=== PATIENT | female | born 2000 | race Caucasian/White ===

== ENCOUNTER 2019-11-21 08:43 | Emergency (ER) | payer BC, SELFPAY ==
--- NOTE | ~2019-11-21 | CT_ITS ---
EXAMINATION: XR abdomen/kub 1V, CT abdomen pelvis wo con DATE: 11/21/2019 09:57 (accession [id number]), 11/21/2019 09:53 (accession [id number]) INDICATION: TECHNIQUE: Computed tomography (CT) of the abdomen and pelvis was performed without intravenous contr ast. The dose-length product was 178.33 mGy-cm. Automated exposure control and iterative reconstructi on technique were employed. KUB. COMPARISON: None. FINDINGS: Heart size normal. No significant pleural or pericardial effusion. There is mild right ureterectasis with periureteral edema proximally. No obstructing stone or mass id entified. Small amount of free fluid in the pelvis. There is a 1.8 cm right ovarian follicle. No calista l stones or masses. Gallbladder is present. Nonobstructive bowel gas pattern. No free air. Colonic di verticulosis without evidence for diverticulitis. No acute osseous abnormality. KUB is unremarkable. IMPRESSION: 1. Mild right ureterectasis with subtle periureteral edema proximally. No obstructing stone or mass s een. Consider recently passed stone in the ascending urinary tract infection. 2: Right ovarian follicle measuring 1.8 cm. Small amount of free fluid in the pelvis, likely physiolo gic. Reviewed, dictated and finalized at location B. IMPRESSION: 1. Mild right ureterectasis with subtle periureteral edema proximally. No obstr ucting stone or mass seen. Consider recently passed stone in the ascending urin gus tract infection. 2: Right ovarian follicle measuring 1.8 cm. Small amount of free fluid in the p tiffanie, likely physiologic.
[2019-11-21 08:52] VITALS: BP 131/82; PULSE 96; RESP 16; TEMP 37.2; O2SAT 97
[2019-11-21 09:13] LABS: Add Urine Microscopic? YES; Appearance Urine Cloudy (Clear); Bacteria Urine Trace /hpf; Bilirubin Urine Negative (Negative); Blood Urine 2+ (Negative); Color Urine Yellow (Yellow); Glucose Urine UA Negative (Negative); Ketones Urine Negative (Negative); Leukocyte Esterase Ur 2+ LEU/UL (Negative); Mucus Urine Heavy /lpf; Nitrate Urine Negative (Negative); Protein Urine 2+ mg/dL (Negative); RBC Urine >75 /hpf (0-2); Specific Grav Ur 1.017 (1.001-1.035); Squamous Epithelial Cell Urine Many /hpf (Few); Urobilinogen Urine Negative mg/dL (<2.0); WBC Urine >75 /hpf
--- NOTE | 2019-11-21 09:14 | ED.ABDPAIN ---
HPI - Abdominal Pain General Chief Complaint: Urogenital-Female Stated Complaint: UTI sx Time Seen by Provider: 11/21/19 08:54 Source: patient Mode of arrival: ambulatory Limitations: no limitations History of Present Illness HPI narrative: This patient is a 19 year old female who presents for evaluation for right flank pain. Patient states she developed increased urinary frequency and dysuria yesterday. She also noticed small amount of blood in her urine. She had a [facility] appointment yesterday and she was prescribed pyridium and bactrim. She has not gotten her prescriptions filled yet. She came to ER because she developed right flank pain with nausea and vomiting. She denies fever or chills. She took 2 ibuprofen before coming to ER. Her pain is currently 6/10. Related Data Home Medications Medication Instructions Recorded Confirmed Control 11/21/19 Allergies Allergy/AdvReac Type Severity Reaction Status Date / Time No Known Allergies Allergy Verified 11/21/19 08:52 Review of Systems Review of Systems: All systems reviewed & are unremarkable except as noted in HPI and below Constitutional: Constitutional: Reports chills and Denies fever(s) Gastrointestinal: Gastrointestinal: Reports abdominal pain, Denies diarrhea, Reports nausea and Reports vomiting Genitourinary: Genitourinary: Reports hematuria, Reports nocturia, Reports dysuria and Reports flank pain PMFSH Past Medical History Medical History (Updated 11/21/19 @ 11:27 by Emilia Cuenca MD) Patient denies medical problems Surgical History Surgical History (Updated 11/21/19 @ 11:16 by Emilia Cuenca MD) No significant past surgical history Social History Social History (Updated 11/21/19 @ 11:13 by Emilia Cuenca MD) Smoking status: Never smoker Gender identity (if verbalized by the patient): Female Exam Const: General: alert Orientation/consciousness: patient oriented x3 Eyes: EOM: EOMs intact bilaterally Chest: Chest palpation & inspection: normal inspection of the chest Resp: Effort & Inspection: normal respiratory effort and no retractions Auscultation: clear to auscultation bilaterally Cardio: Rate: regular rate Rhythm: regular rhythm Heart sounds: no murmurs GI: GI Palp: Yes Soft to palpation, Yes Tenderness to palpation present (GI) (RUQ), No Guarding due to palpation present (GI) and No Rigid due to palpation : General: Yes no CVA tenderness Skin: General skin exam: normal color Rashes: no rashes Neuro: General: patient oriented x3 and moves all extremities Course Reevaluation(s) Reevaluation #1: I Discussed with patient that she may have passed a kidney stone. She has been given IV antibiotics and she will continue her prescribed antibiotics. Date: 11/21/19 Time: 11:24 Vital Signs Vital signs: Vital Signs Temperature 98.9 F 11/21/19 08:52 Pulse Rate 96 11/21/19 08:52 Respiratory Rate 16 11/21/19 08:52 Blood Pressure 131/82 11/21/19 08:52 Pulse Oximetry 97 11/21/19 08:52 Temperature 98.9 F 11/21/19 08:52 Pulse Rate 75 11/21/19 11:35 Respiratory Rate 16 11/21/19 11:35 Blood Pressure 115/68 11/21/19 11:35 Pulse Oximetry 100 11/21/19 11:35 MDM - Abdominal Pain Lab Data Attestation: I reviewed the patient's lab results. Result diagrams: 11/21/19 09:28 11/21/19 09:28 Labs: Lab Results 11/21/19 11/21/19 11/21/19 Range/Units 09:03 09:28 09:28 WBC 11.4 H (4.5-10.0) K/mm3 RBC 4.19 L (4.2-5.4) M/mm3 Hgb 12.3 (12.0-15.0) g/dL Hct 36.8 L (37.0-47.0) % MCV 87.8 (80-100) fl MCH 29.4 (26-34) pg MCHC 33.4 (32-36) g/dl RDW 13.2 (11.5-14.5) % Plt Count 302 (150-375) k/mm3 MPV 8.7 (7.4-10.4) fl Immature Gran % (Auto) 0.3 (0-0.5) % Neut % (Auto) 83.8 H (45.5-73.1) % Lymph % (Auto) 10.4 L (18.3-44.2) % Pope % (Auto) 5.1 (2.6-8.5) % Eos %
[2019-11-21] MEDS: KETOROLAC 30 MG/ML VIAL (*BKC) IV PUSH (09:29)
[2019-11-21] MEDS: ONDANSETRON INJ 4 MG/2 ML VIAL IV PUSH (09:29)
[2019-11-21] MEDS: LACTATED RINGERS 1,000 ML 999 ML IV CONT (09:29)
[2019-11-21 09:34] LABS: Basophils Percent Auto 0.2 % (0.2-1.2); Eosinophils Percent Auto 0.2 % (0-4.4); Hematocrit 36.8 % (37.0-47.0); Hemoglobin 12.3 g/dL (12.0-15.0); Immature Granulocyte Absolute 0.03 K/mm3 (0.00-0.031); Immature Granulocyte Percent A 0.3 % (0-0.5); Lymphocytes Absolute Auto 1.18 K/mm3 (0.9-3.2); Lymphocytes Percent Auto 10.4 % (18.3-44.2); Mean Corpuscular HGB Conc 33.4 g/dl (32-36); Mean Corpuscular Hemoglobin 29.4 pg (26-34); Mean Corpuscular Volume 87.8 fl (80-100); Mean Platelet Volume 8.7 fl (7.4-10.4); Monocytes Absolute Auto 0.6 K/mm3 (0.1-0.6); Monocytes Percent Auto 5.1 % (2.6-8.5); Neutrophils Absolute Auto 9.5 K/mm3 (1.3-6.7); Neutrophils Percent Auto 83.8 % (45.5-73.1); Platelet Count Result 302 k/mm3 (150-375); Red Blood Count 4.19 M/mm3 (4.2-5.4); Red Cell Distribution Width 13.2 % (11.5-14.5); White Blood Count 11.4 K/mm3 (4.5-10.0)
[2019-11-21 09:46] LABS: Alanine Aminotransferase 10 U/L (4-35); Albumin Level 4.1 g/dL (3.5-5.1); Alkaline Phosphatase 46 U/L (38-126); Anion Gap 6 mmol/L (8-16); Aspartate Amino Transferase 20 U/L (14-36); Bilirubin,Total 0.4 mg/dL (0.2-1.3); Blood Urea Nitrogen 7 mg/dL (7-17); Calcium 8.8 mg/dL (8.4-10.2); Carbon Dioxide 25 mmol/L (22-30); Chloride 105 mmol/L (98-107); Estimated CRCL calculation 102 ml/min; Estimated Glomerular Filt Rate > 60; Glucose 100 mg/dL (65-105); Potassium 3.7 mmol/L (3.4-5.0); Sodium 136 mmol/L (137-145)
--- NOTE | 2019-11-21 09:51 | PC.NURSE ---
PT TO CT/XRAY AT THIS TIME.
[2019-11-21 11:15] VITALS: BP 118/75; PULSE 75; RESP 16; O2SAT 100
[2019-11-21 11:35] VITALS: BP 115/68; PULSE 75; RESP 16; O2SAT 100
== END 2019-11-21 11:35 | disposition home or self-care (01) ==
PROVIDERS: Emergency Provider General Practice
DX: N39.0 Urinary tract infection, site not specified (principal)
CPT/HCPCS: 36415; 74018; 74176; 80053; 81001; 81025; 85025; 87077; 87086; 87088; 96361; 96365; 96375; 99284; J0696; J1885; J2405; J7120